=== PATIENT | male | born 1985 | race Hispanic/Latino ===

== ENCOUNTER 2025-01-16 20:22 | Inpatient (IN) | payer OTHER, SELFPAY ==
[2025-01-16] VITALS (11 sets, daily range): BP systolic 115–188; BP diastolic 58–124; PULSE 89–110; RESP 10–19; TEMP 37.7; O2SAT 94–98; BMI 29.9
--- NOTE | 2025-01-16 20:30 | DI.CT.S_ITS ---
PROCEDURE: CT ABDOMEN PELVIS W CON INDICATIONS: diffuse abd pain, hx divertic TECHNIQUE: After the administration of intravenous contrast, axial sections acquired from the lung bases to the pubic symphysis. Coronal and sagittal reformats were performed. For radiation dose reduction, the following was used: automated exposure control, adjustment of mA and/or kV according to patient size. COMPARISON: None. FINDINGS: Image quality: Diagnostic. Lower Chest: No significant findings. ABDOMEN: Liver: No solid mass. Gallbladder: No radiopaque gallstones or wall thickening. Biliary ducts: No biliary dilation. Pancreas: No ductal dilation. Spleen: Size is within normal limits. Adrenal Glands: No adrenal nodules. Kidneys and Ureters: No hydronephrosis. No solid mass. No complex renal cystic lesion which requires follow up. Stomach and Bowel: Acute diverticulitis involving distal sigmoid colon. There is inflammation extending to the bladder dome (348, 60) without intervening fat plane visualized. Colovesicular fistula cannot be excluded. Focal area of hypodensity within this area measuring 8 mm may represent developing phlegmon. No definite extraluminal foci of gas to suggest perforation. No small bowel obstruction. Normal caliber appendix. Peritoneum: No abnormal intraperitoneal fluid. No free air. Ventral Wall: No significant ventral hernia. Abdominal Nodes: No retroperitoneal or mesenteric adenopathy by size criteria. Vessels: Aorta and inferior vena cava are normal in size. PELVIS: Pelvic Organs: Unremarkable. Bladder: Circumferential bladder wall thickening greater than expected for degree of distension.. Pelvic Nodes: No enlarged lymph nodes. Miscellaneous: No inguinal hernias are seen. Bones: No aggressive osseous abnormality. IMPRESSION: Acute diverticulitis involving distal sigmoid colon with inflammatory changes/fat stranding extending to the bladder dome without intervening fat plane visualized. Colovesicular fistula cannot be excluded. Circumferential bladder wall thickening favored to represent cystitis secondary to adjacent inflammation. Approved by: Gia Malin M.D.,Ph.D. on 01/16/2025 at 23:02
--- NOTE | 2025-01-16 20:32 | ED.ABDPAIN ---
HPI - Abdominal Pain General Chief Complaint: Abdominal Pain Stated Complaint: Vomiting, chills, stomach spasms, Time Seen by Provider: 01/16/25 20:28 Source: patient Mode of arrival: Ambulatory History of Present Illness HPI narrative: Patient is a 39-year-old male with a past medical history of diverticulitis comes into the ED from home for evaluation of abdominal pain nausea and vomiting diarrhea ongoing persistent for the past day, states that he has had similar symptoms like this and he has had diagnosis of diverticulitis he does not have a primary care doctor or GI doctor, he denies any trauma or falls denies any radiation of the symptoms. Denies any other symptoms such as headache visual disturbance chest pain shortness breath fever chills or any other GI/ symptoms at this time. Related Data Home Medications ?Medication ?Instructions ?Recorded ?Confirmed No Known Home Medications 01/16/25 01/16/25 Allergies Allergy/AdvReac Type Severity Reaction Status Date / Time No Known Drug Allergies Allergy Verified 01/16/25 20:26 Review of Systems Review of Systems Narrative: General: Denies fever, chills, weight loss HEENT: Denies headache, eye drainage, eye irritation, head trauma, sore throat, voice change Cardiovascular: Denies any chest pain, palpitations, tachycardia Respiratory: Denies any shortness of breath, cough, wheeze, stridor GI/: Positive abdominal pain, nausea, vomiting, diarrhea, denies bright red blood per rectum, melanotic stools, urinary frequency, urinary retention, dysuria, hematuria MSK: Denies any joint pain, muscle pains, swelling Skin: Denies any rashes, lesions, discoloration Neuro: Denies any headache, lightheadedness, dizziness, fainting, weakness Psych: Denies SI/HI Patient History Social History Smoking Status: Never smoker Smoking Status: Never smoker Exam Narrative Exam Narrative: General: Cooperative, well-developed, not in acute distress HEENT: Normocephalic, atraumatic, PERRLA, normal sclera, eyelids normal Neck: Active full range of motion, atraumatic Chest: Normal to inspection, negative crepitus, no overlying erythema ecchymosis Respiratory: Normal respiratory effort, not in acute respiratory distress, clear to auscultation bilaterally negative cough, wheeze, tachypnea, rhonchi, rales Cardiology: Regular rate rhythm negative gallop, murmur, rubs GI/: Mild tenderness to palpation diffusely, soft, non rigid, normal to inspection, exam deferred MSK: Full active range of motion in all 4 extremities, atraumatic, no tenderness to palpation of any bony prominences Skin: No rashes or lesions noted Neuro: Alert awake oriented x3, moves all 4 extremities spontaneously, cranial nerves intact, able to answer all questions appropriately follows commands appropriately Psych: Cooperative, negative suicidal or homicidal ideations Initial Vital Signs Initial Vital Signs: Vital Signs Temperature 99.8 F H 01/16/25 20:27 Pulse Rate 110 H 01/16/25 20:27 Respiratory Rate 16 01/16/25 20:27 Blood Pressure 188/124 H 01/16/25 20:27 Pulse Oximetry 97 01/16/25 20:27 Oxygen Delivery Method Room Air 01/16/25 20:27 Course Orders Ordered: ED Orders 01/16/25 20:12 Complete Blood Count AUTO DIFF Stat Comprehensive Metabolic Panel Stat Lactate (Lactic Acid) Stat Lipase Stat MAG [Magnesium] Stat 01/16/25 20:30 CT abdomen pelvis w con Stat Discontinued Medications Sodium Chloride (Normal Saline 0.9%) 1,000 mls @ 1,000 mls/hr IV BOLUS ONE Stop: 01/16/25 21:29 Last Infusion: 01/16/25 22:12 Dose: Infused Documented By: Admin: 01/16/25 20:38 Dose: 1,000 mls/hr Documented By: AVA Morphine Sulfate (Morphine 4 Mg/Ml Inj) 4 mg IV NOW ONE Stop: 01/16/25 20:31 Last Admin: 01/16/25 20:40 Dose: 4 mg Documented By: AVA Ondansetron HCl (Ondansetron 4 Mg/2 Ml Inj) 4 mg IV NOW ONE Stop: 01/16/25 20:31 Last Admin: 01/16/25 20:39 Dose: 4 mg Documented By: AVA Vital Signs Vital signs: Vital Signs - 8 hr 01/16/25 20:27 Temperature 99.8 F H Pulse Rate 110 H Respiratory Rate 16 Blood Pressure 188/124 H Pulse Oximetry 97 Oxygen Delivery Method Room Air MDM - Abdominal Pain Lab Data 01/16/25 20:12 01/16/25 20:12 Labs: Lab Results 11/20/25 Range/Units 20:12 WBC 8.1 (4.5-11.0) X10^3/uL RBC 4.73 (4.5-5.9) X10^6/uL Hgb 15.9 (13.5-17.5) g/dL Hct 43.9 (41-53) % MCV 92.8 (80-100) fL MCH 33.7 (26-34) PG MCHC 36.3 H (30-36) % RDW 13.3 (11.6-14.8) % Plt Count 383 (150-400) X10^3/uL Neut % (Auto) 86.7 H (50-75) % Lymph % (Auto) 11.1 L (25-40) % [place] % (Auto) 1.9 L (3-14) % Eos % (Auto) 0.0 L (2-4) % Baso % (Auto) 0.3 (0-2) % Neut # (Auto) 7100 H (4417-3438) /uL Lymph # (Auto) 900 L (5428-9904) /uL [place] # (Auto) 200 (0-900) /uL Eos # (Auto) 0 (0-450) /uL Baso # (Auto) 0 (0-100) /uL Platelet Estimate Adequate on smear RBC Morphology See below Rouleaux 2+ H Sodium 139 (137-145) mmol/L Potassium 3.6 (3.4-5.1) mmol/L Chloride 103 (98-107) mmol/L Carbon Dioxide 22 (22-32) mmol/L BUN 14 (9-20) mg/dL Creatinine 0.82 (0.66-1.25) mg/dL Estimated GFR > 60 (>60) mL/min BUN/Creatinine Ratio 17.1 (6-22) Glucose 160 H (70-99) mg/dL Lactate 1.3 (0.7-2.1) mmol/L Calcium 9.2 (8.4-10.2) mg/dL Magnesium 1.8 (1.6-2.3) mg/dL Total Bilirubin 0.9 (0.2-1.3) mg/dL AST 32 (17-59) IU/L ALT 31 (<50) IU/L Alkaline Phosphatase 72 (38-126) U/L Total Protein 8.8 H (6.3-8.2) g/dL Albumin 5.2 H (3.5-5.0) g/dL Globulin 3.6 (1.7-4.1) g/dL Albumin/Globulin Ratio 1.4 (1.0-2.8) Lipase 33 (23-300) U/L Point of care testing: Urine Dip Bedside Urine Glucose Negative Bedside Urine Bilirubin - Negative Bedside Urine Ketone - Negative Urine Specific [place] 1.010 Bedside Urine Occult Blood - Negative Bedside Urine pH 6.0 Bedside Urine Protein - Negative Bedside Urine Urobilinogen - Negative Bedside Urine Nitrite - Negative Bedside Urine Leukocytes - Negative Esterase MDM Narrative Medical decision making narrative: Patient is a 39-year-old male past medical history of diverticulitis presenting for abdominal pain nausea vomiting diarrhea similar to when he has had diverticulitis in the past, he states that he does not have a GI or a primary care doctor states he normally takes comes to the ER for antibiotics when this happens. Symptoms started yesterday and got worsening today. Denies any other symptoms at this time. Patient without any leukocytosis, remainder of his lab work is normal, however patient's CT scan showing acute diverticulitis involving the distal sigmoid colon along with possible colovesicular fistula and a focal area of hypodensity with representing possible developing phlegmon, patient was ordered Zosyn, did have a discussion with general surgeon Dr. Zimmerman who personally reviewed the images and states he does not believe this is a colovesicular fistula however given patient with intractable abdominal pain nausea does agree with admission for continued antibiotics fluids and pain management. The patient's management plan was discussed Dr. Zimmerman, who agrees to admit the patient to their service and assumes care of this patient at this time. Full admission orders will be placed by the primary team. Discharge Plan Departure Patient Disposition: Admitted As Inpatient Clinical Impression: Diverticulitis, Intractable abdominal pain Admit Date/Time: 01/16/25 23:24 Admit Provider: Alan Zimmerman
[2025-01-16] MEDS: SODIUM CHLORIDE 0.9% 1,000 ML 1000 ML IV (20:38)
[2025-01-16] MEDS: ONDANSETRON 4 MG/2 ML INJ IV ×2 (20:39→23:12)
[2025-01-16] MEDS: MORPHINE 4 MG/ML INJ IV (20:40)
[2025-01-16 21:04] LABS: Alanine Aminotransferase 31 IU/L (<50); Albumin 5.2 g/dL (3.5-5.0); Albumin Globulin Ratio 1.4 (1.0-2.8); Alkaline Phosphatase 72 U/L (38-126); Blood Urea Nitrogen 14 mg/dL (9-20); Calcium 9.2 mg/dL (8.4-10.2); Carbon Dioxide 22 mmol/L (22-32); Chloride 103 mmol/L (98-107); Estimated Glomerular Filt Rate > 60 mL/min (>60); Globulin 3.6 g/dL (1.7-4.1); Glucose 160 mg/dL (70-99); HEMOLYSIS < 15 (0-50); Lipase 33 U/L (23-300); Magnesium 1.8 mg/dL (1.6-2.3); Potassium 3.6 mmol/L (3.4-5.1); Sodium 139 mmol/L (137-145); Total Protein 8.8 g/dL (6.3-8.2)
[2025-01-16 21:05] LABS: Lactate (Lactic Acid) 1.3 mmol/L (0.7-2.1)
[2025-01-16 21:33] LABS: Add Manual Diff / Slide Review NO; Hematocrit 43.9 % (41-53); Hemoglobin 15.9 g/dL (13.5-17.5); Lymphocytes Absolute Auto 900 /uL (1100-4500); Mean Corpuscular HGB Conc 36.3 % (30-36); Mean Corpuscular Hemoglobin 33.7 PG (26-34); Mean Corpuscular Volume 92.8 fL (80-100); Platelet Count 383 X10^3/uL (150-400)
[2025-01-16 21:37] LABS: Rouleaux 2+
--- NOTE | 2025-01-16 22:32 | PC.NURSE ---
Pt's friend Carol Ann Barry called requesting an update. Pt consents to updating friend now and in the future. Primary nurse notified.
[2025-01-17] VITALS: BP 134/72; PULSE 87; RESP 15; O2SAT 95
[2025-01-17 00:19] VITALS: BMI 29.9
[2025-01-17] MEDS: PIPERACILLIN/TAZO 4.5 GM in SODIUM CHLORIDE 0.9% 100 ML IV (01:13)
[2025-01-17] MEDS: SODIUM CHLORIDE 0.9% 1,000 ML 125 ML IV ×3 (01:29→20:10)
[2025-01-17] MEDS: MORPHINE 2 MG/ML INJ IV ×2 (01:34→15:06)
--- NOTE | 2025-01-17 07:27 | PM.HP.IH.1 ---
History of Present Illness History of Present Illness Date Patient Seen: 01/17/25 Time Patient Seen: 07:27 Chief complaint: Vomiting, chills, stomach spasms, Narrative: Patient admitted through ED with acute diverticulitis. CT questioned developing colovesical fistula and possible early phlegmon. WBC 8, NLR 8. Patient with previous episodes of diverticulitis in 2019 and 2022 requiring antibiotics. He's had other episodes that he toughed it out and managed at home. No prior colonoscopy. Denies FH for colon cancer. Has noticed blood in his stool in the past. Had coffee ground emesis yesterday. 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 He eats a lot of junk food when he's working construction and notices more diverticular inflammation with an unhealthy diet. Denies urinary symptoms. PFSH Social History Smoking Status: Never smoker Meds Home Medications and Allergies Home Medications ?Medication ?Instructions ?Recorded ?Confirmed ?Type No Known Home Medications 01/16/25 01/16/25 History Allergies Allergy/AdvReac Type Severity Reaction Status Date / Time No Known Drug Allergies Allergy Verified 01/16/25 20:26 Exam Vital Signs (past 8 hours): - 01/16/25 23:30 01/16/25 23:31 01/16/25 23:31 Pulse Rate 94 H 90 Respiratory Rate 13 11 L Blood Pressure 134/58 L Pulse Oximetry 96 96 01/17/25 00:00 01/17/25 00:00 Pulse Rate 87 Respiratory Rate 15 Blood Pressure 134/72 Pulse Oximetry 95 Oxygen Delivery Method Room Air Narrative Exam Narrative: Const General: healthy appearing, comfortable and no acute distress Orientation: alert and oriented x3 HENMT Ears: hearing grossly normal bilaterally Eyes Visual Maddox: normal visual maddox by confrontation Conjunctivae: conjunctivae normal Sclera: sclerae normal EOM: EOM intact bilaterally Resp Effort & Inspection: normal respiratory effort and able to speak in complete sentences Cardio Rate: regular rate GI Palpation: soft, +LLQ focal tenderness Extrem General: no pedal edema and no calf tenderness Objective Labs 01/16/25 20:12 01/16/25 20:12 Labs: Laboratory Results - last 24 hr 01/16/25 20:12 WBC 8.1 RBC 4.73 Hgb 15.9 Hct 43.9 MCV 92.8 MCH 33.7 MCHC 36.3 H RDW 13.3 Plt Count 383 Neut % (Auto) 86.7 H Lymph % (Auto) 11.1 L [place] % (Auto) 1.9 L Eos % (Auto) 0.0 L Baso % (Auto) 0.3 Neut # (Auto) 7100 H Lymph # (Auto) 900 L [place] # (Auto) 200 Eos # (Auto) 0 Baso # (Auto) 0 Platelet Estimate Adequate on smear RBC Morphology See below Rouleaux 2+ H Sodium 139 Potassium 3.6 Chloride 103 Carbon Dioxide 22 BUN 14 Creatinine 0.82 Estimated GFR > 60 BUN/Creatinine Ratio 17.1 Glucose 160 H Lactate 1.3 Calcium 9.2 Magnesium 1.8 Total Bilirubin 0.9 AST 32 ALT 31 Alkaline Phosphatase 72 Total Protein 8.8 H Albumin 5.2 H Globulin 3.6 Albumin/Globulin Ratio 1.4 Lipase 33 Assessment & Plan Assessment and plan (1) Diverticulitis: Status: Acute Plan Acute diverticulitis Start clear liquids this morning Continue Zosyn Trend WBC (8 in ED) Serial exam Repeat CT with worsening symptoms Needs colonoscopy in 8 weeks if no active diverticulitis Multiple prior episodes in young patient Will discuss pros and cons of elective sigmoid resection in office Time-Based Coding :: [TOTAL MINUTES] spent with patient and on the chart (including review of chart, obtaining history, exam, reviewing outside data, placing orders, documenting exam and treatment plan, and counseling patient) on [DATE]. 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
[2025-01-17] MEDS: ONDANSETRON 4 MG/2 ML INJ IV ×3 (07:52→19:04)
[2025-01-17 08:55] LABS: Add Manual Diff / Slide Review NO; Hematocrit 40.9 % (41-53); Hemoglobin 14.7 g/dL (13.5-17.5); Lymphocytes Absolute Auto 1700 /uL (1100-4500); Mean Corpuscular HGB Conc 35.9 % (30-36); Mean Corpuscular Hemoglobin 33.6 PG (26-34); Mean Corpuscular Volume 93.6 fL (80-100); Platelet Count 346 X10^3/uL (150-400)
[2025-01-17 09:30] VITALS: BP 134/91; PULSE 73; RESP 15; TEMP 36.8; O2SAT 99
[2025-01-17 10:25] LABS: Appearance Urine UA CLEAR; Bilirubin Urine UA NEGATIVE (NEGATIVE); Color Urine UA YELLOW; Glucose Urine UA NEGATIVE (Negative); Ketones Urine UA NEGATIVE (NEGATIVE); Leukocyte Esterase Urine UA NEGATIVE (NEGATIVE); Nitrite Urine UA NEGATIVE (Negative); Occult Blood Urine UA NEGATIVE (Negative); Protein Urine UA NEGATIVE (Negative); Specific Gravity Urine UA 1.010 (1.000-1.035); Urobilinogen Urine UA 0.2 E.U./dL (0.2); pH Urine UA 6.5 (4.5-8.0)
[2025-01-17 10:32] LABS: Culture Indicated Urine Cult Not Indicated
[2025-01-17] MEDS: PIPERACILLIN/TAZO 3.375 GM in SODIUM CHLORIDE 0.9% 100 ML IV ×2 (11:22→18:56)
--- NOTE | 2025-01-17 13:20 | CM.DANOTE ---
Initial DCP Assessment Visit Note Reviewed EMR and team rounds for pt's medical status and updates. Met with pt at bedside to introduce self and role. Pt was found to be alert/oriented, resting quietly in bed. Pt resides independently in his home on [address] He has a friend who will be transporting him when he is medically cleared for d/c. He declines any CM d/c needs or resources at this time. The Admission Counselors are working with him on applying for [employer] insurance through [employer]. Payor: Self Pay No PCP Pt is a 39 year-old with a past hx of diverticulitis. He presented to the ED last evening with c/o abdominal pain, nausea, and vomiting for the last 24-hours. CT scan in the ED did show acute diverticulitis. Surgery was consulted, [facility] Plan was made to admit pt for fluids, IV antibiotics, and pain/symptom management. DCP will continue to follow for any further needs prior to his d/c. Discharge Planning/Care Management CM Discharge Assessment Start: 01/17/25 00:19 Freq: Status: Active Protocol: Document 01/17/25 13:18 DPL (Rec: 01/17/25 13:20 DPL [id number]) Discharge Planning Assessment Assigned Discharge WHITNEY [employer] Stock [employer] Insurance Other (enter in Comment) Insurance Comment self pay Advance Directives? No History Provided By Patient,Medical Record Has Patient been No admitted in last 30 days? Prior Living House Arrangements Comment u/k Type of Drives own vehicle transporation used prior to admit Independent with ADL Yes 's Is patient alert and Yes oriented? Caregiver for No Another Comment N/A Comment No d/c needs or resources are identified at this time. Barriers to No Discharge Discharge Plan Home Referrals Initiated None needed Whiteboard Updated Yes in Patient Room with name and ext. # of Questioned Documents Examiner Review Status In Process Please Provide Date 01/17/25 Initial DC Assessment Was Performed
[2025-01-17 14:19] VITALS: BP 101/69; PULSE 63; RESP 16; TEMP 36.6; O2SAT 98
[2025-01-17 19:30] VITALS: BP 137/94; PULSE 62; RESP 18; TEMP 36.9; O2SAT 100
[2025-01-18] MEDS: PIPERACILLIN/TAZO 3.375 GM in SODIUM CHLORIDE 0.9% 100 ML IV ×2 (03:08→11:05)
[2025-01-18] MEDS: PANTOPRAZOLE DR 40 MG TABLET PO (05:49)
[2025-01-18] MEDS: SODIUM CHLORIDE 0.9% 1,000 ML 125 ML IV (06:12)
[2025-01-18 07:46] LABS: Add Manual Diff / Slide Review NO; Hematocrit 38.4 % (41-53); Hemoglobin 14.0 g/dL (13.5-17.5); Lymphocytes Absolute Auto 1800 /uL (1100-4500); Mean Corpuscular HGB Conc 36.5 % (30-36); Mean Corpuscular Hemoglobin 34.0 PG (26-34); Mean Corpuscular Volume 93.0 fL (80-100); Platelet Count 311 X10^3/uL (150-400)
[2025-01-18 08:00] VITALS: BP 139/96; PULSE 62; RESP 16; TEMP 36.4; O2SAT 100
[2025-01-18 09:44] LABS: RBC Morphology Normal Morphology
--- NOTE | 2025-01-18 11:39 | PM.PN.IH.1 ---
Subjective Subjective Date Patient Seen: 01/18/25 Time Patient Seen: 11:40 Interval history: Feeling better today Tolerating clear liquid diet and passing gas Exam Vital Signs (past 8 hours): - 01/18/25 07:00 01/18/25 08:00 Temperature 97.6 F Pulse Rate 62 Respiratory Rate 16 Blood Pressure 139/96 H Pulse Oximetry 100 Oxygen Delivery Method Room Air Oxygen Flow Rate 0 Oxygen Delivery Method Room Air Oxygen Flow Rate 0 Narrative Exam Narrative: Abdomen is soft Minimally tender to palpation Objective Labs 01/18/25 07:25 01/16/25 20:12 Labs: Laboratory Results - last 24 hr 01/18/25 07:25 WBC 8.3 RBC 4.13 L Hgb 14.0 Hct 38.4 L MCV 93.0 MCH 34.0 MCHC 36.5 H RDW 12.9 Plt Count 311 Neut % (Auto) 70.2 Lymph % (Auto) 21.5 L [place] % (Auto) 7.3 Eos % (Auto) 0.6 L Baso % (Auto) 0.4 Neut # (Auto) 5900 Lymph # (Auto) 1800 [place] # (Auto) 600 Eos # (Auto) 0 Baso # (Auto) 0 RBC Morphology Normal morphology PFSH Social History Smoking Status: Never smoker Assessment & Plan Assessment and plan (1) Diverticulitis: Status: Acute Plan Advance to regular diet If tolerates regular diet could potentially go home this afternoon or tomorrow morning Time-Based Coding :: [TOTAL MINUTES] spent with patient and on the chart (including review of chart, obtaining history, exam, reviewing outside data, placing orders, documenting exam and treatment plan, and counseling patient) on [DATE]. PROFEE Manager Skilled Document charge(s): No
--- NOTE | 2025-01-18 17:50 | PC.NURSE ---
Discharge: Seen by this am, if pt can tolerate food and pain is controlled he can go home. Pt had a general diet for lunch and dinner. Tolerated both with out any problems. Feels pain is adequately controlled. Pt would like to go home. [facility] He is unsure if he will be able to pick it up in time. Reports he can tolerate pain. He does have an antibiotic and if he doesn't get there in time he needs to pick it up in the am. He said he would. Discharge packet given and reviewed. Questions answered. Pt d/c to home via ub[facility].
== END 2025-01-18 17:45 | disposition home or self-care (01) | DRG 392 ==
LOC: ED 23:13 → AC 23:25
PROVIDERS: Admitting Provider Surgery; Emergency Provider Student in an Organized Health Care Education/Training Program; Referring Provider Student in an Organized Health Care Education/Training Program; Visit Provider Surgery
DX: K57.12 Diverticulitis of small intestine without perforation or abscess without bleeding (principal)
CPT/HCPCS: 36415; 74177; 80053; 81001; 81003; 83605; 83690; 83735; 85025; 96374; 96375; 96376; 99284; J1171; J2270; J2272; J2405; J2543; J7030; J7050; Q9967

== ENCOUNTER 2025-01-22 08:58 | Inpatient (IN) | payer OTHER, SELFPAY ==
[2025-01-22] VITALS (15 sets, daily range): BP systolic 123–191; BP diastolic 68–119; PULSE 76–109; RESP 15–22; TEMP 36.3–36.7; O2SAT 95–100; BMI 29.9
--- NOTE | 2025-01-22 09:05 | DI.CT.S_ITS ---
PROCEDURE: CT ABDOMEN PELVIS W CON INDICATIONS: recent diverticulitis on antibiotics worsening TECHNIQUE: After the administration of intravenous contrast, axial sections acquired from the lung bases to the pubic symphysis. Coronal and sagittal reformats were performed. For radiation dose reduction, the following was used: automated exposure control, adjustment of mA and/or kV according to patient size. COMPARISON: [facility], CT, CT ABDOMEN PELVIS W CON, 01/16/2025, 21:02. FINDINGS: Image quality: Diagnostic. Lower Chest: No significant findings. ABDOMEN: Liver: No solid mass. Gallbladder: No radiopaque gallstones or wall thickening. Biliary ducts: No biliary dilation. Pancreas: No ductal dilation. Spleen: Size is within normal limits. Adrenal Glands: No adrenal nodules. Kidneys and Ureters: No hydronephrosis. No solid mass. No complex renal cystic lesion which requires follow up. Stomach and Bowel: Again noted is sigmoid diverticulitis. Findings include an inferiorly directed diverticulum with wall thickening and involvement of the left dome of the bladder which is immediately contiguous, with bladder wall thickening. Suspect developing fistula. Reference coronal image 47 of series 3 and sagittal image 62 of series 4. Findings are similar to the previous study. No free air or free fluid. Normal appendix. Peritoneum: No abnormal intraperitoneal fluid. No free air. Ventral Wall: No significant ventral hernia. Abdominal Nodes: No retroperitoneal or mesenteric adenopathy by size criteria. Vessels: Aorta and inferior vena cava are normal in size. PELVIS: Pelvic Organs: Unremarkable. Bladder: No bladder wall thickening, accounting for underdistention. Pelvic Nodes: No enlarged lymph nodes. Miscellaneous: No inguinal hernias are seen. Both testicles are now present in the inguinal canals. Previously, only the right testicle was in the inguinal canal. Suspect that this may not be a longstanding finding. Bones: No aggressive osseous abnormality. IMPRESSION: No significant change in findings. Sigmoid diverticulitis with contiguous inflammatory change in the left dome of the bladder and possible developing fistula between the sigmoid and the bladder. Comment: If the patient has not had recent colonoscopy, recommend direct visualization after acute symptoms resolve to exclude underlying lesion. Dictated by: Carlos Garza M.D. on 01/22/2025 at 9:59 Approved by: Carlos Garza M.D. on 01/22/2025 at 10:05
--- NOTE | 2025-01-22 09:06 | ED.ABDPAIN ---
HPI - Abdominal Pain General Chief Complaint: Abdominal Pain Stated Complaint: vomiting, stomach pain this morning Time Seen by Provider: 01/22/25 09:01 Source: patient, RN notes reviewed and old records reviewed Mode of arrival: Ambulatory Limitations: no limitations History of Present Illness HPI narrative: 39-year-old male with a history of diverticulitis had hospitalization on 12/2024 through 12/2021 for diverticulitis there was question of colonic vesicular fistula but was evaluated by general surgery and felt not to have a fistula. Patient states he was improving was discharged home on antibiotics states he has been taking them. He states he had increase of pain overnight developed nausea and vomiting, increasing lower abdominal pain. No pain in the back or flank. States he has been stooling. He denies any black or bloody stools. He denies any diarrhea or constipation. Denies any dysuria urgency or frequency. Denies any fevers. Patient states he does not take any daily medications. He denies any prior surgeries. No known drug allergies. No tobacco, no regular alcohol, uses marijuana denies any other recreational drugs. Related Data Previous Rx's ?Medication ?Instructions ?Recorded amoxicillin 500 mg-potassium 1 tab PO BID #14 tabs 01/18/25 clavulanate 125 mg tablet (Augmentin) hydrocodone 5 mg-acetaminophen 325 1 tab PO Q8H PRN pain #10 tabs 01/18/25 mg tablet ondansetron 4 mg disintegrating 4 mg PO Q8H PRN nausea and 01/18/25 tablet vomiting #14 tabs Allergies Allergy/AdvReac Type Severity Reaction Status Date / Time No Known Drug Allergies Allergy Verified 01/16/25 20:26 Review of Systems Review of Systems ROS Unobtainable: All systems reviewed & are unremarkable except as noted in HPI and below Exam Narrative Exam Narrative: GENERAL: Alert and oriented x three, male in moderate distress HEENT: Head normocephalic, atraumatic, EOMI, pupils reactive, face symmetric, moist mucous membranes NECK: Supple, full range of motion CARDIOVASCULAR: Regular rate and rhythm without murmurs, rubs or gallops. RESPIRATORY: Breath sounds equal bilaterally, no wheezes rales or rhonchi. ABDOMEN: Soft, generalized tenderness a little bit greater on the right. Nondistended. Normoactive bowel sounds all 4 quadrants. No guarding or rebound, rigidity, no mass : No CVA tenderness EXTREMITIES: Normal range of motion, no clubbing or edema. Neurovascularly intact NEUROLOGICAL: Cranial nerves II through XII grossly intact. Moving all extremities SKIN: Warm, dry, no petechiae, no rashes or lesions. Initial Vital Signs Initial Vital Signs: Vital Signs Temperature 97.3 F L 01/22/25 09:04 Pulse Rate 104 H 01/22/25 09:04 Respiratory Rate 22 01/22/25 09:04 Blood Pressure 173/119 H 01/22/25 09:04 Pulse Oximetry 98 01/22/25 09:04 Oxygen Delivery Method Room Air 01/22/25 09:04 Course Orders Ordered: ED Orders 01/22/25 09:05 CT abdomen pelvis w con Stat 01/22/25 09:06 Blood Culture Stat 01/22/25 09:10 Complete Blood Count AUTO DIFF Stat Comprehensive Metabolic Panel Stat Lactate (Lactic Acid) Stat Lipase Stat Procalcitonin Stat 01/22/25 10:45 UA Complete [Urinalysis and Microscopic] Stat Discontinued Medications Hydromorphone HCl (Hydromorphone Hcl 0.5 Mg/0.5 Ml Syringe) 0.5 mg IV NOW ONE Stop: 01/22/25 09:52 Last Admin: 01/22/25 09:55 Dose: 0.5 mg Documented By: MEGAN Sodium Chloride (Normal Saline 0.9%) 1,000 mls @ 1,000 mls/hr IV BOLUS ONE Stop: 01/22/25 10:03 Last Infusion: 01/22/25 10:32 Dose: Infused Documented By: Admin: 01/22/25 09:20 Dose: 1,000 mls/hr Documented By: MEGAN Ketorolac Tromethamine (Ketorolac 30 Mg/Ml Vial) 15 mg IV NOW ONE Stop: 01/22/25 10:50 Morphine Sulfate (Morphine 4 Mg/Ml Inj) 4 mg IV NOW ONE Stop: 01/22/25 09:05 Last Admin: 01/22/25 09:13 Dose: 4 mg Documented By: MEGAN Ondansetron HCl (Ondansetron 4 Mg/2 Ml Inj) 4 mg IV NOW ONE Stop: 01/22/25 09:05 Last Admin: 01/22/25 09:14 Dose: 4 mg Documented By: MEGNA Vital Signs Vital signs: Vital Signs - 8 hr 01/22/25 09:04 Temperature 97.3 F L Pulse Rate 104 H Respiratory Rate 22 Blood Pressure 173/119 H Pulse Oximetry 98 Oxygen Delivery Method Room Air MDM - Abdominal Pain Lab Data 01/22/25 09:10 01/22/25 09:10 Labs: Lab Results 01/22/25 01/22/25 Range/Units 09:10 10:45 WBC 11.3 H (4.5-11.0) X10^3/uL RBC 5.10 (4.5-5.9) X10^6/uL Hgb 17.2 (13.5-17.5) g/dL Hct 47.1 (41-53) % MCV 92.4 (80-100) fL MCH 33.8 (26-34) PG MCHC 36.6 H (30-36) % RDW 13.2 (11.6-14.8) % Plt Count 409 H (150-400) X10^3/uL Neut % (Auto) 83.5 H (50-75) % Lymph % (Auto) 12.4 L (25-40) % [place] % (Auto) 3.1 (3-14) % Eos % (Auto) 0.1 L (2-4) % Baso % (Auto) 0.9 (0-2) % Neut # (Auto) 9400 H (0877-8000) /uL Lymph # (Auto) 1400 (4265-2277) /uL [place] # (Auto) 400 (0-900) /uL Eos # (Auto) 0 (0-450) /uL Baso # (Auto) 100 (0-100) /uL RBC Morphology Normal morphology Sodium 138 (137-145) mmol/L Potassium 4.2 (3.4-5.1) mmol/L Chloride 105 (98-107) mmol/L Carbon Dioxide 21 L (22-32) mmol/L BUN 14 (9-20) mg/dL Creatinine 0.90 (0.66-1.25) mg/dL Estimated GFR > 60 (>60) mL/min BUN/Creatinine Ratio 15.6 (6-22) Glucose 134 H (70-99) mg/dL Lactate 2.2 H (0.7-2.1) mmol/L Calcium 9.8 (8.4-10.2) mg/dL Total Bilirubin 0.7 (0.2-1.3) mg/dL AST 29 (17-59) IU/L ALT 28 (<50) IU/L Alkaline Phosphatase 88 (38-126) U/L Total Protein 8.7 H (6.3-8.2) g/dL Albumin 4.9 (3.5-5.0) g/dL Globulin 3.8 (1.7-4.1) g/dL Albumin/Globulin Ratio 1.3 (1.0-2.8) Lipase 76 D (23-300) U/L Procalcitonin 0.063 (<0.5) ng/mL Urine Color Yellow Urine Appearance Clear Urine pH 6.0 (4.5-8.0) Ur Specific [place] <=1.005 (1.000-1.035) Urine Protein Negative (Negative) Urine Glucose (UA) Negative (Negative) g/dL Urine Ketones Negative (NEGATIVE) Urine Occult Blood Negative (Negative) Urine Nitrate Negative (Negative) Urine Bilirubin Negative (NEGATIVE) Urine Urobilinogen 0.2 (0.2) E.U./dL Ur Leukocyte Esterase Negative (NEGATIVE) Urine RBC None seen (0-5/HPF) Urine WBC None seen (0-5/HPF) Ur Squamous Epith Cells None seen (0-5/HPF) Urine Bacteria None seen (None) Ur Culture Indicated? Cult not indicated Vol Urine Centrifuged 10ml (spun) MDM Narrative Medical decision making narrative: Labs show white count 11.3 hemoglobin of 17 platelets of 409, these are increased from prior. Chemistries are overall appropriate CO2 is 21 creatinine 0.9 glucose is 134 lactate was 2.2, LFTs are normal lipase is 76 with a procalcitonin 0.[address] abdomen pelvis no significant change in findings sigmoid diverticulitis with a contiguous inflammatory change left dome of the bladder possible developing fistula between sigmoid and bladder. Notes the patient has not had recent colonoscopy recommend direct visualization after acute symptoms to resolve to exclude underlying lesion. Patient received fluids, antiemetics and pain medication. Patient has had some improvement in pain but has a additional pain medication. Reviewed his findings from today patient notes he is supposed to follow up with General surgery with a goal for colonoscopy to evaluate for fistula. Spoke with Dr. Jiménez, general surgery @ [phone], plan for observation. Plan for IV antibiotics, Dr. Jiménez accepts. He we would like some time to decide which antibiotics so we will hold off on giving any here in the department. You can have sips and ice chips. Discharge Plan Departure Patient Disposition: Admitted As Inpatient Clinical Impression: Diverticulitis, Vomiting
[2025-01-22] MEDS: MORPHINE 4 MG/ML INJ IV (09:13)
[2025-01-22] MEDS: ONDANSETRON 4 MG/2 ML INJ IV (09:14)
[2025-01-22] MEDS: SODIUM CHLORIDE 0.9% 1,000 ML 1000 ML IV (09:20)
[2025-01-22 09:32] LABS: Add Manual Diff / Slide Review NO; Hematocrit 47.1 % (41-53); Hemoglobin 17.2 g/dL (13.5-17.5); Lymphocytes Absolute Auto 1400 /uL (1100-4500); Mean Corpuscular HGB Conc 36.6 % (30-36); Mean Corpuscular Hemoglobin 33.8 PG (26-34); Mean Corpuscular Volume 92.4 fL (80-100); Platelet Count 409 X10^3/uL (150-400)
[2025-01-22 09:42] LABS: Alanine Aminotransferase 28 IU/L (<50); Albumin 4.9 g/dL (3.5-5.0); Albumin Globulin Ratio 1.3 (1.0-2.8); Alkaline Phosphatase 88 U/L (38-126); Blood Urea Nitrogen 14 mg/dL (9-20); Calcium 9.8 mg/dL (8.4-10.2); Carbon Dioxide 21 mmol/L (22-32); Chloride 105 mmol/L (98-107); Estimated Glomerular Filt Rate > 60 mL/min (>60); Globulin 3.8 g/dL (1.7-4.1); Glucose 134 mg/dL (70-99); HEMOLYSIS < 15 (0-50); Lipase 76 U/L (23-300); Potassium 4.2 mmol/L (3.4-5.1); Sodium 138 mmol/L (137-145); Total Protein 8.7 g/dL (6.3-8.2)
[2025-01-22 09:43] LABS: Lactate (Lactic Acid) 2.2 mmol/L (0.7-2.1)
[2025-01-22 09:47] LABS: RBC Morphology Normal Morphology
[2025-01-22 09:59] LABS: Procalcitonin 0.063 ng/mL (<0.5)
[2025-01-22 11:02] LABS: Reflexed Lactate in 2 Hours Y
[2025-01-22 11:32] LABS: Appearance Urine UA CLEAR; Bilirubin Urine UA NEGATIVE (NEGATIVE); Color Urine UA YELLOW; Glucose Urine UA NEGATIVE (Negative); Ketones Urine UA NEGATIVE (NEGATIVE); Leukocyte Esterase Urine UA NEGATIVE (NEGATIVE); Nitrite Urine UA NEGATIVE (Negative); Occult Blood Urine UA NEGATIVE (Negative); Protein Urine UA NEGATIVE (Negative); Specific Gravity Urine UA <=1.005 (1.000-1.035); Urobilinogen Urine UA 0.2 E.U./dL (0.2); pH Urine UA 6.0 (4.5-8.0)
[2025-01-22 11:33] LABS: Culture Indicated Urine Cult Not Indicated
[2025-01-22] MEDS: KETOROLAC 30 MG/ML VIAL 15 MG IV (11:42)
[2025-01-22 12:01] LABS: Lactate 2HR (Lactic Acid Rflx) 1.7 mmol/L (0.7-2.1)
--- NOTE | 2025-01-22 16:56 | PC.NURSE ---
Patient arrives this afternoon from ED at 1408. He is ambulatory and VSS, afebrile. He is slightly chilled and reports feeling chills. He states abd pain is 7/10 after medications received in ED. MD Jiménez had arrived at 1400 to evaluate patient, but had not arrived yet and stated he would return after his last case. Patient resting quietly this afternoon. At approximately 1515 patient requested pain medications. RN informed patient that MD would be up to the floor within an hour. Patient had initially expressed being stressed about getting laid off today and having his mother arrive from out of town and wanting to assist with her during her visit, and had stated he may decide to check out this evening. After not initially having pain medication after immediately requesting it, he stated he wanted to sign out and leave Against Medical Advise He signed AMA form brought to him by RN, and this RN signed as a witness. Unable to complete admission assessment for patient. He is escorted to hospital entrance by RN where he left with his mother and her friend at 1625.
== END 2025-01-22 16:25 | disposition left against medical advice (07) | DRG 392 ==
LOC: ED 11:39 → AC 12:04
PROVIDERS: Admitting Provider Surgery; Emergency Provider Emergency Medicine; Referring Provider Emergency Medicine; Visit Provider Surgery
DX: K57.32 Diverticulitis of large intestine without perforation or abscess without bleeding (principal); R11.2 Nausea with vomiting, unspecified; Z53.29 Procedure and treatment not carried out because of patient's decision for other reasons
CPT/HCPCS: 36415; 74177; 80053; 81001; 83605; 83690; 84145; 85025; 87040; 96374; 96375; 96376; 99284; J1171; J1885; J2272; J2405; J7030; Q9967

== ENCOUNTER 2025-02-09 12:36 | Observation (INO) | payer OTHER, SELFPAY ==
[2025-02-09] VITALS (11 sets, daily range): BP systolic 125–166; BP diastolic 73–117; PULSE 67–99; RESP 10–20; TEMP 36.1–37; O2SAT 94–100; BMI 29.9
--- NOTE | 2025-02-09 13:05 | EKG_ITS ---
[address], [place] [address] Test Date: 2025-02-09 Pat Name: Alberto Green Department: [facility] Room: Gender: Male [employer]: CATINA : [id number] Requested By: Order Number: [id number] Reading MD: Jonas Helms MD Measurements Intervals [place] Rate: 84 P: 48 CT: 128 QRS: 13 QRSD: 80 T: 31 QT: 352 QTc: 415 Interpretive Statements Normal sinus rhythm with sinus arrhythmia Electronically Signed On 02-09-2025 21:38:40 PST by Jonas Helms MD
[2025-02-09] MEDS: ONDANSETRON 4 MG/2 ML INJ IV (13:13)
[2025-02-09 13:28] LABS: Add Manual Diff / Slide Review NO; Hematocrit 44.5 % (41-53); Hemoglobin 16.3 g/dL (13.5-17.5); Lymphocytes Absolute Auto 1600 /uL (1100-4500); Mean Corpuscular HGB Conc 36.5 % (30-36); Mean Corpuscular Hemoglobin 33.5 PG (26-34); Mean Corpuscular Volume 91.7 fL (80-100); Platelet Count 381 X10^3/uL (150-400)
[2025-02-09 13:37] LABS: Alanine Aminotransferase 24 IU/L (<50); Albumin 5.0 g/dL (3.5-5.0); Albumin Globulin Ratio 1.4 (1.0-2.8); Alkaline Phosphatase 79 U/L (38-126); Blood Urea Nitrogen 12 mg/dL (9-20); Calcium 9.1 mg/dL (8.4-10.2); Carbon Dioxide 23 mmol/L (22-32); Chloride 105 mmol/L (98-107); Estimated Glomerular Filt Rate > 60 mL/min (>60); Globulin 3.6 g/dL (1.7-4.1); Glucose 130 mg/dL (70-99); HEMOLYSIS < 15 (0-50); Lipase 51 U/L (23-300); Potassium 3.6 mmol/L (3.4-5.1); Sodium 140 mmol/L (137-145); Total Protein 8.6 g/dL (6.3-8.2)
[2025-02-09 14:20] LABS: RBC Morphology Normal Morphology
--- NOTE | 2025-02-09 14:36 | DI.CT.S_ITS ---
PROCEDURE: CT ABDOMEN PELVIS W CON INDICATIONS: pain recent diverticulitis TECHNIQUE: After the administration of intravenous contrast, axial sections acquired from the lung bases to the pubic symphysis. Coronal and sagittal reformats were performed. For radiation dose reduction, the following was used: automated exposure control, adjustment of mA and/or kV according to patient size. COMPARISON: [facility], CT, CT ABDOMEN PELVIS W CON, 01/22/2025, 9:33. FINDINGS: Image quality: Diagnostic. Lower Chest: No significant findings. ABDOMEN: Liver: No solid mass. Gallbladder: No radiopaque gallstones or wall thickening. Biliary ducts: No biliary dilation. Pancreas: No ductal dilation. Spleen: Size is within normal limits. Adrenal Glands: No adrenal nodules. Kidneys and Ureters: No hydronephrosis. No solid mass. No complex renal cystic lesion which requires follow up. Stomach and Bowel: Normal colonic caliber, without significant wall thickening. Diverticulosis of the sigmoid colon with close approximation of inflammatory change along the inferior sigmoid colon with the superior bladder dome. There is continuous soft tissue without discrete intraluminal air within the urinary bladder. These findings are concerning for developing entero-vesicular fistula, and are not significantly changed when compared to 01/22/2025. Peritoneum: No abnormal intraperitoneal fluid. No free air. Ventral Wall: Fat containing periumbilical hernia. Abdominal Nodes: No retroperitoneal or mesenteric adenopathy by size criteria. Vessels: Aorta and inferior vena cava are normal in size. PELVIS: Pelvic Organs: Bilateral retractile testicles in the distal inguinal canals.. Bladder: No bladder wall thickening, accounting for underdistention. Pelvic Nodes: No enlarged lymph nodes. Miscellaneous: No inguinal hernias are seen. Bones: No aggressive osseous abnormality. 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 Again recommend correlation with colonoscopy if not recently performed to evaluate for possible underlying lesion. Dictated by: Eliezer Sainz M.D. on 02/09/2025 at 14:36 Approved by: Eliezer Sainz M.D. on 02/09/2025 at 14:44
--- NOTE | 2025-02-09 14:40 | ED.ABDPAIN ---
HPI - Abdominal Pain General Chief Complaint: Abdominal Pain Stated Complaint: severe abd pain, since yesterday Time Seen by Provider: 02/09/25 14:36 Source: patient Mode of arrival: Ambulatory History of Present Illness HPI narrative: Patient 39-year-old male with history of diverticulitis, was recently admitted January 16 through the for developing colovesical fistula, presenting today with increasing pain. He reports that it started a couple days ago progressively getting worse. He threw up today. He is passing gas and having normal bowel movements. He thinks he may have had some blood in his vomit today. He has some cold sweats but no active fever. He actively appears very uncomfortable. Related Data Previous Rx's ?Medication ?Instructions ?Recorded amoxicillin 500 mg-potassium 1 tab PO BID #14 tabs 01/18/25 clavulanate 125 mg tablet (Augmentin) hydrocodone 5 mg-acetaminophen 325 1 tab PO Q8H PRN pain #10 tabs 01/18/25 mg tablet ondansetron 4 mg disintegrating 4 mg PO Q8H PRN nausea and 01/18/25 tablet vomiting #14 tabs Allergies Allergy/AdvReac Type Severity Reaction Status Date / Time No Known Drug Allergies Allergy Verified 02/09/25 13:02 Exam Initial Vital Signs Initial Vital Signs: Vital Signs Temperature 97.0 F L 02/09/25 13:02 Pulse Rate 99 H 02/09/25 13:02 Respiratory Rate 18 02/09/25 13:02 Blood Pressure 166/117 H 02/09/25 13:02 Pulse Oximetry 98 02/09/25 13:02 Oxygen Delivery Method Room Air 02/09/25 13:02 GENERAL: Alert 39-year-old male appears very uncomfortable HEENT: Head atraumatic,EOMI, pupils reactive, face symmetric, moist mucous membranes CARDIOVASCULAR: Regular rate and rhythm without murmurs, rubs or gallops. RESPIRATORY: Breath sounds equal bilaterally, no wheezes rales or rhonchi. ABDOMEN: Soft, pretty significant tenderness lower suprapubic area more on left than right no distention definite guarding EXTREMITIES: Normal range of motion, no clubbing or edema. Neurovascularly intact NEUROLOGICAL: Alert and oriented x4.Normal gait and speech. Cranial nerves II through XII grossly intact. SKIN: Warm, dry, no laceration, no petechiae, no rashes or lesions. Course Orders Ordered: ED Orders 02/09/25 13:05 EKG-12 Lead Stat 02/09/25 13:09 Complete Blood Count AUTO DIFF Stat Comprehensive Metabolic Panel Stat Lipase Stat 02/09/25 14:36 CT abdomen pelvis w con Stat 02/09/25 15:45 Lactate (Lactic Acid) Stat 02/10/25 07:00 Comprehensive Metabolic Panel DAILY Acetaminophen (Acetaminophen 325 Mg Tablet) 650 mg PO Q6H DANI Last Admin: 02/09/25 17:09 Dose: Not Given Documented By: SHAWNA Hydromorphone HCl (Hydromorphone 1 Mg/Ml Syringe) 1 mg IV Q2HR PRN PRN Reason: Pain, Moderate (4-6) Last Admin: 02/09/25 16:43 Dose: 1 mg Documented By: SHAWNA(2) Hydromorphone HCl (Hydromorphone 2 Mg Tablet) 2 mg PO Q4HR PRN PRN Reason: Pain, Moderate (4-6) Hydromorphone HCl (Hydromorphone 2 Mg Tablet) 4 mg PO Q4HR PRN PRN Reason: Pain, Severe (7-10) Potassium Chloride 20 meq/ (Dextrose/Sodium Chloride) 1,010 mls @ 100 mls/hr IV CONT DANI Stop: 02/10/25 02:29 Last Admin: 02/09/25 16:47 Dose: 100 mls/hr Documented By: SHAWNA(2) Co-signed By: FM Piperacillin Sod/Tazobactam (Sod 3.375 gm/ Sodium Chloride) 100 mls @ 25 mls/hr IV Q8H DANI Potassium Chloride/Dextrose/Sod Cl (Dextrose 5%-0.45%Ns W/Kcl 20meq) 1,000 mls @ 100 mls/hr IV CONT DANI Ibuprofen (Ibuprofen 600 Mg Tablet) 600 mg PO Q6H DANI Naloxone HCl (Naloxone 0.4 Mg/Ml Vial) 0.2 mg IV Q2MIN PRN PRN Reason: Opiate Reversal Ondansetron HCl (Ondansetron 4 Mg/2 Ml Inj) 4 mg IV NOW PRN PRN Reason: Nausea And Vomiting Last Admin: 02/09/25 13:13 Dose: 4 mg Documented By: KENDALL Ondansetron HCl (Ondansetron 4 Mg Odt) 4 mg PO Q8HR PRN PRN Reason: Nausea And Vomiting Oxycodone HCl (Oxycodone Ir 5 Mg Tablet) 5 mg PO Q3H PRN PRN Reason: Pain, Moderate (4-6) Oxycodone HCl (Oxycodone Ir 5 Mg Tablet) 10 mg PO Q3H PRN PRN Reason: Pain, Severe (7-10) Discontinued Medications Hydromorphone HCl (Hydromorphone Hcl 0.5 Mg/0.5 Ml Syringe) 0.5 mg IV NOW ONE Stop: 02/09/25 14:37 Last Admin: 02/09/25 15:02 Dose: 0.5 mg Documented By: TONI Sodium Chloride (Normal Saline 0.9%) 1,000 mls @ 1,000 mls/hr IV BOLUS ONE Stop: 02/09/25 15:36 Last Infusion: 02/09/25 15:49 Dose: Infused Documented By: SHAWNA(2) Admin: 02/09/25 15:02 Dose: 1,000 mls/hr Documented By: TONI Piperacillin Sod/Tazobactam (Sod 3.375 gm/ Sodium Chloride) 100 mls @ 25 mls/hr IV Q8H [facility] Last Admin: 02/09/25 17:01 Dose: Not Given Documented By: SHAWNA Piperacillin Sod/Tazobactam (Sod 4.5 gm/ Sodium Chloride) 100 mls @ 200 mls/hr IV NOW ONE Stop: 02/09/25 17:14 Last Infusion: 02/09/25 17:26 Dose: Infused Documented By: Admin: 02/09/25 16:49 Dose: 200 mls/hr Documented By: SHAWNA(2) Ibuprofen (Ibuprofen 600 Mg Tablet) 600 mg PO Q6H [facility] Ketorolac Tromethamine (Ketorolac 30 Mg/Ml Vial) 15 mg IV NOW ONE Stop: 02/09/25 14:37 Last Admin: 02/09/25 15:01 Dose: 15 mg Documented By: TONI Ondansetron HCl (Ondansetron 4 Mg Odt) 4 mg PO NOW PRN PRN Reason: Nausea And Vomiting Last Admin: 02/09/25 15:01 Dose: 4 mg Documented By: TONI Oxycodone HCl (Oxycodone Ir 10 Mg Tablet) 10 mg PO Q3H PRN PRN Reason: Pain, Severe (7-10) Vital Signs Vital signs: Vital Signs - 8 hr 02/09/25 13:02 02/09/25 14:39 02/09/25 15:00 Temperature 97.0 F L 98.6 F Pulse Rate 99 H 87 78 Respiratory Rate 18 16 10 L Blood Pressure 166/117 H Pulse Oximetry 98 99 97 Oxygen Delivery Method Room Air 02/09/25 15:30 02/09/25 16:03 02/09/25 16:38 Temperature Pulse Rate 87 82 91 H Respiratory Rate 14 13 16 Blood Pressure 161/93 H 156/89 H Pulse Oximetry 94 100 98 Oxygen Delivery Method Room Air Room Air Room Air 02/09/25 17:00 02/09/25 17:00 Temperature Pulse Rate 96 H Respiratory Rate Blood Pressure 125/76 Pulse Oximetry 97 Oxygen Delivery Method Room Air MDM - Abdominal Pain Lab Data 02/09/25 13:09 02/09/25 13:09 Labs: Lab Results 02/09/25 02/09/25 Range/Units 13:09 15:45 WBC 7.9 (4.5-11.0) X10^3/uL RBC 4.86 (4.5-5.9) X10^6/uL Hgb 16.3 (13.5-17.5) g/dL Hct 44.5 (41-53) % MCV 91.7 (80-100) fL MCH 33.5 (26-34) PG MCHC 36.5 H (30-36) % RDW 12.9 (11.6-14.8) % Plt Count 381 (150-400) X10^3/uL Neut % (Auto) 74.1 (50-75) % Lymph % (Auto) 20.0 L (25-40) % [place] % (Auto) 4.2 (3-14) % Eos % (Auto) 0.5 L (2-4) % Baso % (Auto) 1.2 (0-2) % Neut # (Auto) 5900 (0138-7313) /uL Lymph # (Auto) 1600 (5660-5431) /uL [place] # (Auto) 300 (0-900) /uL Eos # (Auto) 0 (0-450) /uL Baso # (Auto) 100 (0-100) /uL RBC Morphology Normal morphology Sodium 140 (137-145) mmol/L Potassium 3.6 (3.4-5.1) mmol/L Chloride 105 (98-107) mmol/L Carbon Dioxide 23 (22-32) mmol/L BUN 12 (9-20) mg/dL Creatinine 0.73 (0.66-1.25) mg/dL Estimated GFR > 60 (>60) mL/min BUN/Creatinine Ratio 16.4 (6-22) Glucose 130 H (70-99) mg/dL Lactate 0.9 (0.7-2.1) mmol/L Calcium 9.1 (8.4-10.2) mg/dL Total Bilirubin 0.9 (0.2-1.3) mg/dL AST 30 (17-59) IU/L ALT 24 (<50) IU/L Alkaline Phosphatase 79 (38-126) U/L Total Protein 8.6 H (6.3-8.2) g/dL Albumin 5.0 (3.5-5.0) g/dL Globulin 3.6 (1.7-4.1) g/dL Albumin/Globulin Ratio 1.4 (1.0-2.8) Lipase 51 (23-300) U/L Imaging Data CT scan - abdomen/pelvis: Radiologist's Impression: PROCEDURE: CT ABDOMEN PELVIS W CON INDICATIONS: pain recent diverticulitis TECHNIQUE: After the administration of intravenous contrast, axial sections acquired from the lung bases to the pubic symphysis. Coronal and sagittal reformats were performed. For radiation dose reduction, the following was used: automated exposure control, adjustment of mA and/or kV according to patient size. COMPARISON: [facility], CT, CT ABDOMEN PELVIS W CON, 01/22/2025, 9:33. FINDINGS: Image quality: Diagnostic. Lower Chest: No significant findings. ABDOMEN: Liver: No solid mass. Gallbladder: No radiopaque gallstones or wall thickening. Biliary ducts: No biliary dilation. Pancreas: No ductal dilation. Spleen: Size is within normal limits. Adrenal Glands: No adrenal nodules. Kidneys and Ureters: No hydronephrosis. No solid mass. No complex renal cystic lesion which requires follow up. Stomach and Bowel: Normal colonic caliber, without significant wall thickening. Diverticulosis of the sigmoid colon with close approximation of inflammatory change along the inferior sigmoid colon with the superior bladder dome. There is continuous soft tissue without discrete intraluminal air within the urinary bladder. These findings are concerning for developing entero-vesicular fistula, and are not significantly changed when compared to 01/22/2025. Peritoneum: No abnormal intraperitoneal fluid. No free air. Ventral Wall: Fat containing periumbilical hernia. Abdominal Nodes: No retroperitoneal or mesenteric adenopathy by size criteria. Vessels: Aorta and inferior vena cava are normal in size. PELVIS: Pelvic Organs: Bilateral retractile testicles in the distal inguinal canals.. Bladder: No bladder wall thickening, accounting for underdistention. Pelvic Nodes: No enlarged lymph nodes. Miscellaneous: No inguinal hernias are seen. Bones: No aggressive osseous abnormality. 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 Again recommend correlation with colonoscopy if not recently performed to evaluate for possible underlying lesion. Dictated by: Eliezer Sainz M.D. on 02/09/2025 at 14:36 ECG Data Attestation: I personally reviewed and interpreted this ECG as follows: Interpretation: Sinus rhythm rate 84 OH interval 128 QRS 80 QTC [address] changes no ischemia MDM Narrative Medical decision making narrative: MDM CC: Abdominal Complicating co-morbidities: Diverticulitis Data collected from: Patient Medical records reviewed: Recent admission reviewed the through the . He had a repeat visit ED on the but patient says he ultimately left Against Medical Advice.. With a goal during that admission was for him to have a colonoscopy to evaluate for fistula Differential considered: Diverticulitis perforation sepsis Exam documented above, pertinent findings include: Alert 39-year-old male appears very uncomfortable abdomen is acute with guarded but soft Lab Test results independently reviewed as above. Pertinent findings: CBC no leukocytosis no anemia CMP no electrolyte abnormalities Independently reviewed EKG as above Sinus rhythm Imaging studies independently reviewed: CT shows unchanged sigmoid diverticulitis with continuous inflammatory change concern for an entero vesicular fistula Consultations: Dr. Irving in ED to see and evaluate and will admit. Treatments:NS dilaudid Toradol Re-evaluations: Pain is better after Dilaudid Discussion: Patient 39-year-old male with ongoing diverticulitis symptoms. Abdomen is quite tender. CT is concerning for entero vesicular fistula. Patient is quite tender but no leukocytosis or evidence of sepsis. Surgery in ED to see and evaluate patient agrees to admission. Discharge Plan Departure Patient Disposition: Admitted As Inpatient Clinical Impression: Diverticulitis Admit Date/Time: 02/09/25 17:03 Admit Provider: Cleve Irving
[2025-02-09] MEDS: KETOROLAC 30 MG/ML VIAL 15 MG IV (15:01)
[2025-02-09] MEDS: ONDANSETRON 4 MG ODT PO (15:01)
[2025-02-09] MEDS: SODIUM CHLORIDE 0.9% 1,000 ML 1000 ML IV (15:02)
[2025-02-09 16:03] LABS: Lactate (Lactic Acid) 0.9 mmol/L (0.7-2.1)
--- NOTE | 2025-02-09 16:25 | PM.HP.IH.1 ---
History of Present Illness History of Present Illness Date Patient Seen: 02/09/25 Chief complaint: severe abd pain, since yesterday Narrative: The patient is a 39-year-old gentleman who presents with proximally 24 hour history of onset of severe left lower quadrant suprapubic abdominal pain. The pain is very severe and worsened with movement. The patient has nauseated and has vomited. He states he did vomit blood 1 time yesterday. Continues to have formed stools without any blood or melena. He describes fevers and chills. Of note, the patient has a history of a diverticulitis. He has had numerous episodes which are hard to quantify. He was recently admitted to the hospital in December for 24 hours with a diagnosis of diverticulitis, with a concern about a possible colovesical fistula. He was discharged to home on oral antibiotics which he admits he did not complete the course on. He presented again 5 days after admission with continued abdominal pain. He was evaluated again and felt to have persistent diverticulitis and recommendation was made for him to be admitted to the hospital. He signed out Against Medical Advice. The patient denies any dysuria, frequency, or pneumaturia. Meds Home Medications and Allergies Home Medications ?Medication ?Instructions ?Recorded ?Confirmed ?Type amoxicillin 500 mg-potassium 1 tab PO BID #14 tabs 01/18/25 Rx clavulanate 125 mg tablet (Augmentin) hydrocodone 5 mg-acetaminophen 325 1 tab PO Q8H PRN pain #10 tabs 01/18/25 Rx mg tablet ondansetron 4 mg disintegrating 4 mg PO Q8H PRN nausea and 01/18/25 Rx tablet vomiting #14 tabs Allergies Allergy/AdvReac Type Severity Reaction Status Date / Time No Known Drug Allergies Allergy Verified 02/09/25 13:02 Review of Systems Review of Systems ROS: Yes All systems reviewed & are unremarkable except as noted in HPI and below Exam Vital Signs (past 8 hours): - 02/09/25 13:02 02/09/25 14:39 02/09/25 15:00 Temperature 97.0 F L 98.6 F Pulse Rate 99 H 87 78 Respiratory Rate 18 16 10 L Blood Pressure 166/117 H Pulse Oximetry 98 99 97 Oxygen Delivery Method Room Air 02/09/25 15:30 02/09/25 16:03 Temperature Pulse Rate 87 82 Respiratory Rate 14 13 Blood Pressure 161/93 H Pulse Oximetry 94 100 Oxygen Delivery Method Room Air Room Air Oxygen Delivery Method Room Air Narrative Exam Narrative: The patient is alert and appears to be in moderate distress. Neck is supple Lungs are clear to auscultation bilaterally Cardiac reveals a regular rate and rhythm without murmurs rubs or gallops Abdomen is essentially soft except in the left lower quadrant and suprapubic region where he has significant tenderness with involuntary guarding. There is percussion tenderness. Bowel sounds are hypoactive Extremities reveal full range of motion Neuro was grossly intact Objective Imaging CT scan - abdomen: Radiologist's impression: [address] [address] [address] Scan Report Signed Patient: Alberto Green MR#: [id number] : 1985 Acct:[id number] Age/Sex: 39 / M Date of Service: 02/09/25 Loc: ED Accession Number: [id number] Procedure: CT abdomen pelvis w con Ordering Provider: Bernie Ni D.O. PROCEDURE: CT ABDOMEN PELVIS W CON INDICATIONS: pain recent diverticulitis TECHNIQUE: After the administration of intravenous contrast, axial sections acquired from the lung bases to the pubic symphysis. Coronal and sagittal reformats were performed. For radiation dose reduction, the following was used: automated exposure control, adjustment of mA and/or kV according to patient size. COMPARISON: [facility], CT, CT ABDOMEN PELVIS W CON, 01/22/2025, 9:33. FINDINGS: Image quality: Diagnostic. Lower Chest: No significant findings. ABDOMEN: Liver: No solid mass. Gallbladder: No radiopaque gallstones or wall thickening. Biliary ducts: No biliary dilation. Pancreas: No ductal dilation. Spleen: Size is within normal limits. Adrenal Glands: No adrenal nodules. Kidneys and Ureters: No hydronephrosis. No solid mass. No complex renal cystic lesion which requires follow up. Stomach and Bowel: Normal colonic caliber, without significant wall thickening. Diverticulosis of the sigmoid colon with close approximation of inflammatory change along the inferior sigmoid colon with the superior bladder dome. There is continuous soft tissue without discrete intraluminal air within the urinary bladder. These findings are concerning for developing entero-vesicular fistula, and are not significantly changed when compared to 01/22/2025. Peritoneum: No abnormal intraperitoneal fluid. No free air. Ventral Wall: Fat containing periumbilical hernia. Abdominal Nodes: No retroperitoneal or mesenteric adenopathy by size criteria. Vessels: Aorta and inferior vena cava are normal in size. PELVIS: Pelvic Organs: Bilateral retractile testicles in the distal inguinal canals.. Bladder: No bladder wall thickening, accounting for underdistention. Pelvic Nodes: No enlarged lymph nodes. Miscellaneous: No inguinal hernias are seen. Bones: No aggressive osseous abnormality. 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 Again recommend correlation with colonoscopy if not recently performed to evaluate for possible underlying lesion. Dictated by: Eliezer Sainz M.D. on 02/09/2025 at 14:36 Approved by: Eliezer Sainz M.D. on 02/09/2025 at 14:44 Labs 02/09/25 13:09 02/09/25 13:09 Labs: Laboratory Results - last 24 hr 02/09/25 02/09/25 13:09 15:45 WBC 7.9 RBC 4.86 Hgb 16.3 Hct 44.5 MCV 91.7 MCH 33.5 MCHC 36.5 H RDW 12.9 Plt Count 381 Neut % (Auto) 74.1 Lymph % (Auto) 20.0 L [place] % (Auto) 4.2 Eos % (Auto) 0.5 L Baso % (Auto) 1.2 Neut # (Auto) 5900 Lymph # (Auto) 1600 [place] # (Auto) 300 Eos # (Auto) 0 Baso # (Auto) 100 RBC Morphology Normal morphology Sodium 140 Potassium 3.6 Chloride 105 Carbon Dioxide 23 BUN 12 Creatinine 0.73 Estimated GFR > 60 BUN/Creatinine Ratio 16.4 Glucose 130 H Lactate 0.9 Calcium 9.1 Total Bilirubin 0.9 AST 30 ALT 24 Alkaline Phosphatase 79 Total Protein 8.6 H Albumin 5.0 Globulin 3.6 Albumin/Globulin Ratio 1.4 Lipase 51 Assessment & Plan Assessment and plan (1) Diverticulitis: Status: Acute (2) Vomiting: Status: Acute Plan Patient presents with a recurrent versus a persistent diverticulitis. He it has been inadequately treated previously secondary to his own compliance. I believe it is prudent to admit him to the hospital and place him on a course of IV antibiotics to quiet this episode down. Ultimately, I believe he would be able to be discharged home on a course of oral antibiotics, with adamant instructions to complete the antibiotic course. I believe the patient would benefit from a sigmoid colectomy as he has had recurrent episodes of diverticulitis. Prior to any consideration for a sigmoid colectomy he will need a colonoscopy which should be done after this episode has resolved. Time-Based Coding :: [TOTAL MINUTES] spent with patient and on the chart (including review of chart, obtaining history, exam, reviewing outside data, placing orders, documenting exam and treatment plan, and counseling patient) on [DATE]. 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
[2025-02-09] MEDS: POTASSIUM CHLORIDE 20 MEQ in DEXTROSE 5%-0.45% NS 1,000 ML 100 MEQ IV (16:47)
[2025-02-09] MEDS: PIPERACILLIN/TAZO 4.5 GM in SODIUM CHLORIDE 0.9% 100 ML IV (16:49)
--- NOTE | 2025-02-09 17:13 | CM.DANOTE ---
DCP Assessment Note: Pt is a 39yo male, resident of [facility], is admitted for diverticulitis. Pt lives in a house with family. Pt's Primary Care Provider is unknown and insurance is Welfare out of State. Reviewed chart and discussed with multidisciplinary team pt's medical status and initial discharge needs. Per Surgeon, pt to be admitted and recommending a sigmoid colectomy. DCP met w/patient at bedside; introduced self and role. Patient was found in bed, alert and oriented, cooperative with assessment. Pt confirmed living situation and good support in family and friend, Carol Ann. Pt expressed preference in discharge home when cleared. Pt has a history of admission in Dec 2024 and he was discharged home. No referrals anticipated. Plan: Anticipating discharge home with friend to transport when medically cleared. CM team will follow closely for coordination of discharge plans. DAT Rocha Discharge Planning/Care Management CM Discharge Assessment Start: 02/09/25 17:10 Freq: Status: Active Protocol: Document 02/09/25 17:10 MW (Rec: 02/09/25 17:12 MW [id number]) Discharge Planning Assessment Assigned Discharge WHITNEY Slater Hides Soaker Provider N/A DPOA/Assigned Kong Kyle Designee Name Contact Information [phone] Advance Directives? No History Provided By Patient,Medical Record Prior Living House Arrangements Type of Drives own vehicle transporation used prior to admit Independent with ADL Yes 's Is patient alert and Yes oriented? Discharge Plan Home Transportation Friend - Carol Ann Arrangement Referrals Initiated None needed Review Status In Process Please Provide Date 02/09/25 Initial DC Assessment Was Performed Next Review Type Continued Stay Review
[2025-02-09 18:21] LABS: Add Manual Diff / Slide Review NO; Hematocrit 40.8 % (41-53); Hemoglobin 14.8 g/dL (13.5-17.5); Lymphocytes Absolute Auto 700 /uL (1100-4500); Mean Corpuscular HGB Conc 36.3 % (30-36); Mean Corpuscular Hemoglobin 33.3 PG (26-34); Mean Corpuscular Volume 91.9 fL (80-100); Platelet Count 339 X10^3/uL (150-400)
[2025-02-09 19:06] LABS: Rouleaux 1+
[2025-02-09] MEDS: ACETAMINOPHEN 325 MG TABLET 650 MG PO (21:56)
[2025-02-09] MEDS: IBUPROFEN 600 MG TABLET PO (21:57)
[2025-02-09] MEDS: PIPERACILLIN/TAZO 3.375 GM in SODIUM CHLORIDE 0.9% 100 ML IV (21:58)
[2025-02-10] VITALS: BP 132/96; PULSE 73; RESP 20; TEMP 36.7; O2SAT 97
[2025-02-10] MEDS: IBUPROFEN 600 MG TABLET PO ×2 (02:15→09:27)
[2025-02-10] MEDS: ACETAMINOPHEN 325 MG TABLET 650 MG PO (02:15)
[2025-02-10] MEDS: DEXTROSE 5%-0.45NS W/KCL 20MEQ 1,000 ML 100 MEQ IV (02:44)
[2025-02-10 04:30] VITALS: BP 136/94; PULSE 63; RESP 16; TEMP 36.5; O2SAT 99
[2025-02-10] MEDS: PIPERACILLIN/TAZO 3.375 GM in SODIUM CHLORIDE 0.9% 100 ML IV (06:30)
[2025-02-10 08:15] VITALS: BP 136/94; PULSE 72; RESP 16; TEMP 36.8; O2SAT 99
[2025-02-10 09:05] LABS: Alanine Aminotransferase 19 IU/L (<50); Albumin 3.9 g/dL (3.5-5.0); Albumin Globulin Ratio 1.4 (1.0-2.8); Alkaline Phosphatase 56 U/L (38-126); Blood Urea Nitrogen 8 mg/dL (9-20); Calcium 8.4 mg/dL (8.4-10.2); Carbon Dioxide 24 mmol/L (22-32); Chloride 106 mmol/L (98-107); Estimated Glomerular Filt Rate > 60 mL/min (>60); Globulin 2.8 g/dL (1.7-4.1); Glucose 126 mg/dL (70-99); HEMOLYSIS < 15 (0-50); Potassium 3.8 mmol/L (3.4-5.1); Sodium 137 mmol/L (137-145); Total Protein 6.7 g/dL (6.3-8.2)
--- NOTE | 2025-02-10 10:29 | PM.PN.IH.1 ---
Subjective Subjective Date Patient Seen: 02/10/25 Interval history: The patient is adamant that he wishes to leave against medical advice. Exam Vital Signs (past 8 hours): - 02/10/25 04:30 02/10/25 08:15 Temperature 97.7 F 98.2 F Pulse Rate 63 72 Respiratory Rate 16 16 Blood Pressure 136/94 H 136/94 H Pulse Oximetry 99 99 Oxygen Flow Rate 0 Oxygen Delivery Method Room Air Oxygen Flow Rate 0 Narrative Exam Narrative: none Objective Labs 02/09/25 17:52 02/10/25 08:31 Labs: Laboratory Results - last 24 hr 02/09/25 02/09/25 02/09/25 13:09 15:45 17:52 WBC 7.9 8.1 RBC 4.86 4.44 L Hgb 16.3 14.8 Hct 44.5 40.8 L MCV 91.7 91.9 MCH 33.5 33.3 MCHC 36.5 H 36.3 H RDW 12.9 13.0 Plt Count 381 339 Neut % (Auto) 74.1 89.8 H Lymph % (Auto) 20.0 L 8.5 L [place] % (Auto) 4.2 1.3 L Eos % (Auto) 0.5 L 0.0 L Baso % (Auto) 1.2 0.4 Neut # (Auto) 5900 7200 H Lymph # (Auto) 1600 700 L [place] # (Auto) 300 100 Eos # (Auto) 0 0 Baso # (Auto) 100 0 RBC Morphology Normal morphology See below Rouleaux 1+ H Sodium 140 Potassium 3.6 Chloride 105 Carbon Dioxide 23 BUN 12 Creatinine 0.73 Estimated GFR > 60 BUN/Creatinine Ratio 16.4 Glucose 130 H Lactate 0.9 Calcium 9.1 Total Bilirubin 0.9 AST 30 ALT 24 Alkaline Phosphatase 79 Total Protein 8.6 H Albumin 5.0 Globulin 3.6 Albumin/Globulin Ratio 1.4 Lipase 51 02/10/25 08:31 WBC RBC Hgb Hct MCV MCH MCHC RDW Plt Count Neut % (Auto) Lymph % (Auto) [place] % (Auto) Eos % (Auto) Baso % (Auto) Neut # (Auto) Lymph # (Auto) [place] # (Auto) Eos # (Auto) Baso # (Auto) RBC Morphology Rouleaux Sodium 137 Potassium 3.8 Chloride 106 Carbon Dioxide 24 BUN 8 L Creatinine 0.73 Estimated GFR > 60 BUN/Creatinine Ratio 11.0 Glucose 126 H Lactate Calcium 8.4 Total Bilirubin 0.7 AST 22 ALT 19 Alkaline Phosphatase 56 Total Protein 6.7 Albumin 3.9 Globulin 2.8 Albumin/Globulin Ratio 1.4 Lipase PFSH Social History household members: family Smoking Status: Never smoker alcohol intake: current Assessment & Plan Assessment and plan (1) Diverticulitis: Status: Acute Plan The patient is adamant that he is going to leave against medical advice. I spent time discussing the potential consequences of this decision. He has already had 3 visits to the emergency department for this problem. He failed to complete his initial antibiotic course. At the 2nd emergency department visit he once again signed out Against Medical Advice. We discussed the possibility that this could progress and he may need emergency surgery which require an emergency operation with the potential for a colostomy and a subsequent surgery for reattachment of his colon. I will discharge him on antibiotics. Time-Based Coding :: [TOTAL MINUTES] spent with patient and on the chart (including review of chart, obtaining history, exam, reviewing outside data, placing orders, documenting exam and treatment plan, and counseling patient) on [DATE]. 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
--- NOTE | 2025-02-10 11:59 | PC.NURSE ---
Patient was up ambulating in hallways this morning without difficulty. Patient did c/o of abdominal pain 09/05 and medicated with po dilaudid per prn orders and patient rested in bed. Patient then relayed to this RN that he was checking out at 1015 today, this RN attempted to reach Dr. Irving. Patient encouraged to stay and educated on risks. Patient then states he will leave against medical advice, and Dr. Irving able to come to room and speak with patient about plan of care. Dr. Irving highly worried that patient will not stay for IV antibiotic treatment at this time. Patient signed AMA paperwork and IV was removed. Patient encouraged to chart picker prescription and complete course. Instructed to seek care for any worsening symptoms.
--- NOTE | 2025-02-10 12:07 | CM.DPC ---
DCP AMA Per Surgeon and RN, pt adamant that he wants to leave today even after Surgeon explained the risks but pt confirms he wants to leave AMA before lunch time and provided with pwk and IV taken out and pt left the floor. Pt with 3 ED visits for his ongoing diverticulitis and non compliant with outpt antibiotics or remaining in the hospital for ongoing tx. WHITNEY Oseguera
== END 2025-02-10 10:29 | disposition home or self-care (01) ==
LOC: ED 16:15 → AC 17:04
PROVIDERS: Admitting Provider Surgery Trauma Surgery; Emergency Provider Emergency Medicine; Referring Provider Emergency Medicine; Visit Provider Surgery Trauma Surgery
DX: K57.92 Diverticulitis of intestine, part unspecified, without perforation or abscess without bleeding (principal); Z53.29 Procedure and treatment not carried out because of patient's decision for other reasons
CPT/HCPCS: 36415; 74177; 80053; 83605; 83690; 85025; 93005; 96365; 96366; 96368; 96375; 96376; 99284; G0378; J1171; J1885; J2405; J2543; J3480; J7030; J7050; Q9967